=== PATIENT | female | born 1945 | race Hispanic/Latino ===

== ENCOUNTER 2016-12-19 15:49 | Outpatient (CLI) | payer MEDICARE ==
--- NOTE | 2016-12-19 16:18 | XRay Report ---
CHEST 2 VIEWS INDICATION: Cough. COMPARISON: None similar. FINDINGS: PA and lateral chest radiographs demonstrate normal cardiomediastinal silhouette. Clear lungs. Thoracic spondylosis, including degenerative spurring and scoliosis. CONCLUSION: No acute disease in the chest. Thank you for the opportunity to participate in this patient's care.
== END 2016-12-19 15:50 | disposition home or self-care (01) ==
LOC: SPVIMAG 15:49
PROVIDERS: ATTEND Internal Medicine
DX: R05 Cough (principal); M47.894 Other spondylosis, thoracic region; M41.84 Other forms of scoliosis, thoracic region
CPT/HCPCS: 71020